=== PATIENT | male | born 1955 | race Caucasian/White ===

== ENCOUNTER 2017-06-25 10:00 | Outpatient (CLI) | payer MEDICARE ==
[~2017-06-25] VITALS: Ht 182.9 cm; Wt 85.0 kg
--- NOTE | ~2017-06-25 | HEMODYNAMI ---
PATIENT:OCHOA YOU MEDICAL RECORD: [id number] : 59 LOCATION:[facility] ADMISSION DATE: 06/25/17 Generatedon:06/25/201715:01 Patient name: OCHOA YOU Patient #: [id number] SSN: : 1955 Date of study: 06/25/2017 Page: Of Hemodynamic Procedure Report Patient Data Patient Demographics Procedure consent was obtained First Name: OCHOA Gender: Male Last Name: KENYATTA : 1955 Middle Initial: REGINA Age: 62 year(s) Patient #: [id number] Race: Unknown Additional ID: [id number] Contact details [address]: [address] [place] [address] State: [place] City: [place] Zip code: [address] Admission Admission Data Admission Date: 06/25/2017 Admission Time: 10:00 Procedure Procedure Types Cath Procedure Diagnostic Procedure LHC LHC w/Coronaries PCI Procedure Coronary Stent Initial Miscellaneous Procedures Moderate Sedation up to 30 minutes Peripheral Cath Diagnostic Procedure Cath Peripheral Rghky-Bsbgqzs-Ery-Off Abd/Extremity Extremities AFRO Lower Ext Arterio Procedure Description Procedure Date Procedure Date: 06/25/2017 Procedure Start Time: 14:34 Procedure Staff Name Function Aleksey Mccarty MD Performing Physician Mahendra Colon RT Scrub Billy Ramey RT Monitor Cyndie Scruggs RN Nurse Procedure Data Cath Procedure Fluoroscopy Diagnostic fluoroscopy Total fluoroscopy Time: 4.2 time: 4.2 min min Diagnostic fluoroscopy Total fluoroscopy dose: 891 dose: 891 mGy mGy Contrast Material Contrast Material Type Amount (ml) Isovue 300 151 Entry Location Entry Primary Successful Side Size Upsize Upsize Entry Closure Succes sful Closure Location (Fr) 1 (Fr) 2 (Fr) Remarks Device Remarks Femoral Right 5 Fr 6 Fr Exoseal artery Short Diagnostic catheters Device Type Used For End Catheter Placement Cordis 5Fr JL 4.0 Left Coronary Catheter (MP) Angiography Cordis 5Fr 3DRC Catheter Right Coronary (MP) Angiography Cordis 5Fr Pigtail LV Angiography Catheter (MP) Procedure Medications Medication Administration Route Dosage Oxygen NC 2 l/min Heparin Flush Bag added to field 2 bags (1000units/500ml NS) Lidocaine 2% added to field 20 Versed I.V. 1 mg Fentanyl I.V. 50 mcg Versed I.V. 1 mg Fentanyl I.V. 50 mcg Versed I.V. 0.5 mg Fentanyl I.V. 25 mcg Heparin Bolus I.V. 5000 units Integrilin (Bolus I.V. 7.9 ml 2mg/ml) Plavix P.O. 600 mg Hemodynamics Rest Heart Rate: 54 (bpm) Pressure Samples Time Site Value (mmHg) Purpose Heart Use Rate(bpm) 14:41 LV 136/-30,13 Snapshot 58 14:41 AO 123/55(80) Pullback 55 14:41 LV 131/11,13 Pullback 55 Gradients Valve Time Site 1 Site 2 Mean SEP/DFP Peak To Heart Use (mmHg) (sec/min) Peak Rate (mmHg) (bpm) Aortic 14:41 LV AO 5 14 8 55 131/11,13 123/55(80) Calculations Valve P-P Mean Valve Index Valve Source Name Gradient Area Flow (cm2) Aortic 8 5 8 5 Snapshots Pre Cath Intra NCS Post Cath Vital Signs Time Heart Resp SPO2 NIBP (mmHg) Rhythm Pain Sedation Rate (ipm) (%) Status Level (bpm) 14:17:39 50 18 100 156/67(110) SB 0 (11) 10(A) , No pain 14:22:38 51 16 100 Measuring SB 0 (11) 10(A) , No pain 14:23:09 52 16 100 135/61(105) SB 0 (11) 10(A) , No pain 14:27:25 61 16 97 125/62(91) SB 0 (11) 9(A) , No pain 14:31:38 54 22 99 124/66(103) SB 0 (11) 9(A) , No pain 14:35:51 51 16 98 125/72(96) SB 0 (11) 9(A) , No pain 14:40:02 53 20 99 130/70(104) SB 0 (11) 9(A) , No pain 14:44:20 56 17 96 128/60(92) SB 0 (11) 9(A) , No pain 14:49:19 60 15 96 Measuring SB 0 (11) 9(A) , No pain 14:49:30 53 16 97 118/63(106) SB 0 (11) 9(A) , No pain 14:54:29 48 16 99 Measuring SB 0 (11) 9(A) , No pain 14:54:41 51 16 98 124/68(89) SB 0 (11) 10(A) , No pain 14:58:51 51 19 99 134/66(107) SB 0 (11) 10(A) , No pain Medications Time Medication Route Dose Verified Delivered Reason Notes Effectiveness by by 14:17:13 Oxygen NC 2 Aleksey Cyndie Per physician l/min [facility]. Tarik Scruggs RN, MD 14:17:21 Heparin Flush added 2 Aleksey Aleksey used for Bag to bags [facility] procedure (1000units/500ml field MD SEAY NS) 14:17:29 Lidocaine 2% added 20ml Aleksey Aleksey used for to vial [facility] procedure field MD SEAY 14:20:20 Versed I.V. 1 mg Aleksey Cyndie for sedation [facility]. Tarik Scruggs RN, MD 14:20:26 Fentanyl I.V. 50 Aleksey Cyndie for sedation mcg [facility] Tarik Scruggs RN, MD 14:23:43 Versed I.V. 1 mg Aleksey Cyndie for sedation [facility] Tarik Scruggs RN, MD 14:23:53 Fentanyl I.V. 50 Aleksey Cyndie for sedation mcg [facility] Tarik Scruggs RN, MD 14:27:00 Versed I.V. 0.5 Aleksey Cyndie for sedation mg [facility] Tarik Scruggs RN, MD 14:27:10 Fentanyl I.V. 25 Aleksey Cyndie for sedation mcg [facility] Tarik Scruggs RN, MD 14:46:35 Heparin Bolus I.V. 5000 Aleksey Cyndie for dose units [facility] Tarik Scruggs RN anticoagulation verified wtleesa carmona 14:50:18 Integrilin I.V. 7.9 Aleksey Cyndie for wasted (Bolus 2mg/ml) ml [facility] Tarik Scruggs RN antiplatelet 2.1ml therapy 14:58:16 Plavix P.O. 600 Aleksey Cyndie for mg [facility]. Tarik Scruggs RN antiplatelet therapy Procedure Log Time Note 14:08:17 [place] RT (R) (CV) sent for patient. Start room use. 14:11:44 Time tracking: Regular hours 14:11:52 Plan of Care:Hemodynamics will remain stable., Cardiac rhythm will remain stable., Comfort level will be maintained., Respiratory function will remain adequate., Patient/ family verbilizes understanding of procedure., Procedure tolerated without complication., Recovers from procedure without complications.. 14:11:57 Patient received from Pre/Post Procedure Room to [facility] 2 Alert and oriented. Tansferred to table in Supine position. 14:11:59 Warm blankets applied, and ruma hugger turned on for patient comfort. 14:11:59 Correct patient and procedure confirmed by team. 14:12:01 Signed procedure consent form obtained from patient. 14:12:02 ECG and BP/O2 sat monitors applied to patient. 14:12:03 Full Disclosure recording started 14:12:04 - 14:12:06 H&P Date Dictated: 06/25/2017 H&P Addendum completed by physician on day of procedure. (MUST COMPLETE FOR ALL OUTPATIENTS). 14:12:07 Pre-procedure instructions explained to patient. 14:12:07 Pre-op teaching completed and patient verbalized understanding. 14:12:09 Family in waiting room. 14:12:10 Patient NPO since Midnight. 14:12:17 Is the patient allergic to Iodine/contrast media? No. 14:12:19 Is patient on blood thinner?No 14:12:21 Patient diabetic? No. 14:12:23 - 14:12:23 ----Pre-sedation anethsthesia assessment.---- 14:12:26 Previous problem with sedation/anesthesia? No ? 14:12:27 Snore? Yes 14:12:29 Sleep apnea? No 14:12:30 Deviated septum? No 14:12:31 Opens mouth fully? Yes 14:12:32 Sticks out tongue? Yes 14:12:34 Airway obstruction? No ? 14:12:38 Dentures? No ? 14:12:39 - 14:12:42 Pre procedure: right dorsailis pedis pulse Doppler 14:12:50 Patient pain scale 0/10 no pain. 14:12:54 Sharps counted by scrub and verified by R.N. 14:12:54 Alarms reviewed by R. N. 14:13:49 Sleep apnea? Yes 14:13:55 ACC The patient was administered the following blood thiners within the last 24 hours: ACCAspirin 14:16:17 Vital chart was started 14:17:13 Oxygen 2 l/min NC was administered by Cyndie Scruggs RN; Per physician; 14:17:21 Heparin Flush Bag (1000units/500ml NS) 2 bags added to field was administered by Aleksey Mccarty MD; used for procedure; 14:17:29 Lidocaine 2% 20ml vial added to field was administered by Aleksey Mccarty MD; used for procedure; 14:18:32 IV patent on arrival in left forearm with 0.9% NaCl at [facility]. 14:18:38 Bilateral groins area was prepped with chlora-prep and draped in steril e fashion 14:18:43 Physician arrived 14:18:43 --------ALL STOP TIME OUT------ 14:18:44 Final Timeout: patient, procedure, and site verified with staff and physician. All members of the team are in agreement. 14:18:46 Bilateral groins site verified by team. 14:18:50 Physical assessment completed. ASA score P 2 - A patient with mild systemic disease as per Aleksey Mccarty MD. 14:18:53 Sedation plan: IV Moderate Sedation Versed, Fentanyl 14:20:20 Versed 1 mg I.V. was administered by Cyndie Scruggs RN; for sedation; 14:20:26 Fentanyl 50 mcg I.V. was administered by Cyndie Scruggs RN; for sedation; 14:21:00 Use device set Femoral Dx 14:21:01 Acist Syringe opened to sterile field. 14:21:02 Bag Decanter opened to sterile field. 14:21: Medline Cath Pack opened to sterile field. 14:21:03 Terumo 5Fr [place] Sheath opened to sterile field. 14:21:03 [facility] 260cm J .035 wire opened to sterile field. 14:21:07 Acist Hand Control opened to sterile field. 14:21:08 Acist Manifold opened to sterile field. 14:21:08 Diagnostic Infinity 5Fr Multipack catheter opened to sterile field. 14:21:09 Tegaderm 4 x 4 opened to sterile field. 14:22:25 Baseline sample Acquired. 14:22:29 Rhythm: sinus bradycardia 14:23:43 Versed 1 mg I.V. was administered by Cyndie Scruggs RN; for sedation; 14::53 Fentanyl 50 mcg I.V. was administered by Cyndie Scruggs RN; for sedation; 14:27:00 Versed 0.5 mg I.V. was administered by Cyndie Scruggs RN; for sedation; 14:27:10 Fentanyl 25 mcg I.V. was administered by Cyndie Scruggs RN; for sedation; 14:27:22 Zero performed for pressure channel P1 14:33:50 Procedure started. 14:34:01 Local anesthetic to right femoral artery with Lidocaine 2% by Aleksey Mccarty MD.INITIAL ACCESS ONLY 14:34:52 A 5 Fr sheath was inserted into the Right Femoral artery 14:36:46 A Cordis 5Fr JL 4.0 Catheter (MP) was advanced over the wire and used for Left Coronary Angiography. 14:37:00 LCA angiography performed. 14:39:00 A Cordis 5Fr 3DRC Catheter (MP) was advanced over the wire and used for Right Coronary Angiography. 14:39:04 RCA angiography performed. 14:40:11 A Cordis 5Fr Pigtail Catheter (MP) was advanced over the wire and used for LV Angiography. 14:40:14 LV angiography performed. 14:41:48 Abdominal angiogram w/ runoff was performed. 14:43:43 Terumo 6Fr [place] Sheath opened to sterile field. 14:43:54 Sheath upsized to a 6 Fr Short. 14:44:06 36Kr BasixCompak Inflation Kit opened to sterile field. 14:44:16 Medtronic Launcher 6Fr EBU 3.0 guide catheter opened to sterile field. 14:44:29 Morgan Whisper J 300cm 0.014 guide wire opened to sterile field. 14:44:57 6 Fr EBU 3.0 guide catheter was inserted over the wire 14:45:02 Whisper wire advanced. 14:46:04 Procedure type changed to Cath procedure, Diagnostic procedure, LHC, LH C w/Coronaries, PCI procedure, Coronary Stent Initial, Miscellaneous Procedures, Moderate Sedation up to 30 minutes, Peripheral Cath Diagnostic Procedure, Cath Peripheral, Iffbt-Tvmtdnb-Yds-Off, Abd/Extremity, Extremities, AFRO Lower Ext Arterio 14:46:35 Heparin Bolus 5000 units I.V. was administered by Cyndie Scruggs RN; fo r anticoagulation; dose verified wt dr carmona 14:50:18 Integrilin (Bolus 2mg/ml) 7.9 ml I.V. was administered by Cyndie cespedes RN; for antiplatelet therapy; wasted 2.1ml 14:52:12 Inflation Number: 1 A Medtronic Integrity 3.0 X 22 stent was prepped an d advanced across the Mid CX. The stent was deployed at 14 ANTHONY for 0:45 (min:sec). 14:53:08 Inflation number: 2 The stent balloon was then re-inflated across the Mid CX to 6 ANTHONY for 0:19 (min:sec). 14:53:52 Cordis 6Fr Exoseal opened to sterile field. 14:54:03 Sheath removed intact; hemostasis achieved with Exoseal to the Right Femoral artery. 14:54:06 Procedure ended.(Physican Out) 14:54:20 Fluoroscopy time 04.20 minutes. 14:54:24 Fluoroscopy dose: 891 mGy 14:54:24 Flurop Dose total: 891 14:54:29 Contrast amount:Isovue 300 151ml. 14:54:30 Sharps counted by scrub and verified by R.N. 14:54:31 Insertion/operative site no bleeding no hematoma. 14:54:35 Post-op/insertion site Right Femoral artery dressed using a 4 x 4 and Tegaderm. 14:54:38 Post right femoral artery:stable 14:54:39 Post Procedure Pulses reassessed and unchanged 14:54:44 Post-procedure physical assessment completed. ASA score P 2 - A patient with mild systemic disease as per Aleksey Mccarty MD. 14:54:47 Post procedure rhythm: unchanged. 14:54:47 Post procedure instruction explained to patient.Patient verbalizes understanding. 14:54:48 Procedure and supply charges have been captured, reviewed, submitted an d are correct. 14:58:16 Plavix 600 mg P.O. was administered by Cyndie Scruggs RN; for antiplatelet therapy; 15:00:50 Report given to Pre/Post Procedure Room. 15:00:54 Patient transfered to Pre/Post Procedure Room with Stretcher. 15:01:39 Vital chart was stopped Intervention Summary Intervention Notes Time ActionType Lesion and Equipment Action# Pressure Duration Attributes Used 14:52:12 Place stent Mid CX Medtronic 1 14 00:46 Integrity 3.0 X 22 stent 14:53:08 Reinflate Mid CX Medtronic 2 6 00:19 stent Integrity balloon 3.0 X 22 stent Device Usage Item Name Manufacture Quantity Catalog Hospital Part Current Minimal L ot# / Number Charge Number Stock Stock Serial# Code Acist Acist 1 [id number] 496118 206068 048716 20 Syringe Medical Systems Inc Bag Microtek 1 2002S 388512 81284 352557 5 MatrixVision Inc. Medline Cardinal 1 [id number] 782837 01854 891126 5 Cath Pack Health Terumo 5Fr Terumo 1 [id number] 694431 299133 217448 [address] [facility] 1 569805 398371 064063 154914 30 260cm J .035 wire Acist Hand Acist 1 67819 430234 421392 059484 5 ProtectWise Medical Systems Inc Acist Acist 1 13115 904378 782799 717578 5 Compression Kinetics Medical Systems Inc Diagnostic Cardinal 1 [id number] 416355 46078 796755 30 Widgetboxity Health 5Fr Multipack catheter Tegaderm 4 3M 1 1626W 502499 387394 957699 5 x 4 Cordis 5Fr Cardinal 1 546343 5 JL 4.0 Health Catheter (MP) Cordis 5Fr Cardinal 1 504817 5 3DRC Health Catheter (MP) Cordis 5Fr Cardinal 1 274891 5 Pigtail Health Catheter (MP) Terumo 6Fr Terumo 1 [id number] 881018 757532 202964 40 [place] Merit Merit 1 [id number] 118248 189873 292960 15 BridgeCo Medical Inflation Kit Medtronic Medtronic 1 [id number] 128295 70481 769020 0 Launcher 6Fr EBU 3.0 guide catheter Morgan Morgan 1 [id number] 840501 111349 072933 5 Whisper J Vascular 300cm 0.014 guide wire Medtronic Medtronic 1 [id number] 238500 921536 1 0 [id number] Integrity 3.0 X 22 stent Cordis 6Fr Cardinal 1 EX600 737027 699216 944235 10 [facility] Practice Ignition Signature Audit Reading Stage Time Signature Unsigned Intra-Procedure 06/25/2017 3:01:23 PM Tanvir RT (R) (CV) Signatures Monitor : Signature : Tanvir RT Date : Time : [place] [id number] [place] [address]
--- NOTE | ~2017-06-25 | OP ---
PATIENT NAME: OCHOA YOU MEDICAL RECORD: [id number] :59 LOCATION:D.CAT ADMISSION DATE: SURGEON: FABIANO ALLISON MD DATE OF OPERATION: 06/25/2017 PROCEDURE: Left heart catheterization, selective coronary angiography, right femoral artery approach. CATHETERS: A 5-Norwegian sheath, 5/4 left and right Penelope, 5/4 pig. We proceeded to PTCA stenting as well as AFRO after the left heart catheterization. FINDINGS: Left ventriculography in 30-degree LEAL view shows marked inferior basilar hypokinesis. Overall LV function reduced at 35% to 40%. CORONARY ANATOMY: LEFT MAIN: Left main is free of disease. LAD: LAD has a discrete stenosis after takeoff of the diagnosis at 80%. CIRCUMFLEX: Has more diffuse 80% stenosis in the first OM. RIGHT CORONARY ARTERY: Totally occluded, fills via [id number] collaterals. The catheter was then pulled to the level of the renal arteries and abdominal aortogram was performed that shows: 1. No evidence of significant renal artery stenosis, no evidence of aneurysm resection. 2. Right lower extremity runoff, this shows the right common iliac no significant disease, right internal iliac no significant disease, right common femoral no significant disease, right superficial femoral no significant disease with 2-vessel runoff. Left. Left common iliac no significant disease, left internal iliac no significant disease, left external iliac no significant disease, left common femoral no significant disease, left superficial femoral artery shows no significant disease, two-vessel runoff. IMPRESSION: Normal lower extremity runoff. PLAN: Intervention of the circumflex. DESCRIPTION OF PROCEDURE: A 5-Norwegian sheath was changed for a 6-Norwegian sheath. The XB LAD guide catheter provided good guide catheter support followed by 300 cm Whisper wire was placed across the site occluded circumflex down this portion of this vessel. Stent deployed was a 22 mm x 3.0 Integrity stent up to 14 atmospheres for 45 seconds. Final injection shows excellent resolution of a diffuse 80% stenosis, no significant residual. ISHMAEL flow was 3 throughout the procedure. Integrilin was used in the case. Sheath closed with ExoSeal device. Plavix was loaded in the lab. TRANSINT:[id number] Voice Confirmation ID: [id number] DOCUMENT ID: [id number] OPERATIVE REPORT [id number] OCHOA YOU FABIANO ALLISON MD CC: [id number] DICTATION DATE: 06/25/17 1508 NURSE RESEARCH: 06/25/172020 DEP CLI 06/25/17 [place] [id number] [place] [id number]
[2017-06-25] MEDS ORDERED: BAYER CHEWABLE81 MG PO ×2 (10:52→15:29)
[2017-06-25 10:59] VITALS: BP 181/66; Ht 182.9 cm; Wt 85.0 kg
[2017-06-25] MEDS ORDERED: LISINOPRIL10 MG PO (11:03)
[2017-06-25 11:22] LABS: BASOPHILS 0.7 % (0-2); EOSINOPHILS 1.5 % (0-7); HEMATOCRIT 47.1 % (42.0-54.0); HEMOGLOBIN 14.6 g/dL (13.5-17.5); IMMATURE GRANULOCYTES 0.3 % (0-5); LYMPHOCYTES 30.3 % (15-50); MCH 27.9 pg (26.0-34.0); MCV 90.1 fL (80.0-100.0); MEAN PLATELET VOLUME 10.2 fL (7.4-10.4); MONOCYTES 7.8 % (2-11); NEUTROPHILS 59.4 % (40-80); PLATELET COUNT 230 10x3/uL (130-400); RBC 5.23 10x6/uL (4.20-6.10); RDW 13.3 % (11.5-14.5); WBC 7.2 10x3/uL (4.8-10.8)
[2017-06-25 11:48] LABS: CALC OSMOLALITY 275 mosm/kg (275-300); CALCIUM 8.8 mg/dL (8.5-10.1); CARBON DIOXIDE 24.4 mmol/L (21.0-32.0); CHLORIDE - SERUM 102 mmol/L (98-107); GLUCOSE 125 mg/dL (74-106); POTASSIUM - SERUM 5.1 mmol/L (3.5-5.1); SODIUM 137 mmol/L (136-145); UREA NITROGEN 16 mg/dL (7-18); eGFR NON AFRICAN AMERICAN 81 mL/min (90-120)
--- NOTE | 2017-06-25 11:51 | NUR ---
1515 RECIEVED TO ROOM VIA STRETCHER FROM HOME COORDINATOR WITH REPORTS OF ONE STENT TO THE CIRC. 6 FR EXOSEAL R/GROIN CDI NO BLEEDING NO HEMATOMA NOTED. FAMILY AT SIDE 1545 CHEST PAIN IS DENIED VSS WITH 6 FR EXOSEAL R/GROIN CDI NO BLEEDING NO HEMATOMA NOTED INSTRUCTED PATIENT TO KEEP HEAD FLAT ON PILLOW WITH RLE STRIAGHT 1615 CHEST PAIN DENIED WITH VSS 6 FR EXOSEAL R/GROIN CDI NO BLEEDING NO HEMATOMA NOTED.
[2017-06-25] MEDS ORDERED: PLAVIX75 MG PO (15:29)
[2017-06-25] MEDS ORDERED: ALDACTONE25 MG PO (15:30)
--- NOTE | 2017-06-25 16:00 | NUR ---
2 CC AIR REMOVED FROM TR BAND WITH NO BLEEDING NO HEMATOMA NOTED. PIV REMOVED WITH DRESSING APPLIED. CHEST PAIN IS DENIED. PATIENT UP TO GET DRESSED FOR DISCHARGE HOME 1630 TR BAND REMOVED WITH DRESSING APPLIED. CHEST PAIN IS DENIED. VERBAL AND WRITTEN DISCHARGE GONE OVER WITH PATIENT AND FAMILY LEFT VIA WC TO PARKING FOR TRANSPORT HOME
--- NOTE | 2017-06-25 16:30 | NUR ---
1630 RESTING QUIELTY WITH NO DISTRESS NOTED 6 FR EXOSEAL R/GROIN CDI NO BLEEDING NO HEMATOMA NOTED 1700 NO CHANGE IN ASSESSMENT VSS WITH SANDWICH AND SODA TO BEDSIDE. IS PRESENT TO ASSIST R/GROIN CDI
--- NOTE | 2017-06-25 17:46 | NUR ---
PATIENT SLEEPING QUIELTY WITH NO DISTRESS NOTED 6 FR EXOSEAL R/GROIN CDI NO BLEEDING NO HEMATOMA NOTED. VSS
--- NOTE | 2017-06-25 18:18 | NUR ---
REPOSITIONED TO SITTING WITH HOB UP 45 DEGREES CHEST PAIN IS DENIED. 6 FR EXOSEAL R/GROIN CDI NO BLEEDING NO HEMATOMA NOTED.
--- NOTE | 2017-06-25 18:33 | NUR ---
PIV REMOVED WITH DRESSING APPLIED CHEST PAIN IS DENIED. 6 FR EXOSEAL R/GROIN CDI NO BLEEDING NO HEMATOMA NOTED. PATIENT UP TO GET DRESSED FOR DISCHARGE HOME
== END 2017-06-25 18:57 | disposition home or self-care (01) ==
LOC: D.CATH 10:00
PROVIDERS: Internal Medicine Interventional Cardiology
DX: I25.119 Atherosclerotic heart disease of native coronary artery with unspecified angina pectoris (principal); Z01.812 Encounter for preprocedural laboratory examination

== ENCOUNTER → 2017-07-02 10:49 | Outpatient (CLI) | payer MEDICARE ==
[~2017-07-02] VITALS: Ht 182.9 cm; Wt 84.1 kg
--- NOTE | ~2017-07-02 | OP ---
PATIENT NAME: OCHOA YOU MEDICAL RECORD: [id number] :59 LOCATION:D.CAT ADMISSION DATE: SURGEON: FABIANO ALLISON MD DATE OF OPERATION: 07/02/2017 PTCA Stenting of the LAD For previous report please see catheterization done previously. 6-Maori sheath placed in the left femoral artery. An EBU 3.5 guiding catheter provided good guide catheter support followed 300 cm Whisper wire which was placed across the 80% stenosed LAD down to the distal portion of this vessel. Stent deployed was a 3.0 x 18 mm Integrity nondrug-eluting stent inflated up to 14 atmospheres for 45 seconds. Final injection shows excellent resolution of 80% stenosis, no significant residual. ISHMAEL flow was 3 throughout the procedure. The patient was previously on Plavix, heparin was given in the lab. Sheath was closed with ExoSeal device. TRANSINT:[id number] Voice Confirmation ID: [id number] DOCUMENT ID: [id number] FABIANO ALLISON MD CC: [id number] DICTATION DATE: 07/02/17 1531 GIS DEVELOPER: 07/02/172053 DEP CLI 07/02/17 [facility] [address] [place] [address]
--- NOTE | ~2017-07-02 | HEMODYNAMI ---
PATIENT:OCHOA YOU MEDICAL RECORD: [id number] : 59 LOCATION:[facility] ADMISSION DATE: 07/02/17 Generatedon:07/02/201715:33 Patient name: OCHOA YOU Patient #: [id number] SSN: : 1955 Date of study: 07/02/2017 Page: Of Hemodynamic Procedure Report Patient Data Patient Demographics Procedure consent was obtained First Name: OCHOA Gender: Male Last Name: KENYATTA : 1955 [facility] Initial: REGINA Age: 62 year(s) Patient #: [id number] Race: Unknown Additional ID: [id number] Contact details [address]: [address] [place] [address] State: [place] City: [place] Zip code: [address] Past Medical History Allergies: No known allergies Admission Admission Data Admission Date: 07/02/2017 Admission Time: 10:49 Lab Results Lab Result Date: 07/02/2017 Lab Result Time: 0:00 Biochemistry Name Units Result Min Max BUN mg/dl 18 --(---*)-- 7 18 Creatinine mg/dl 1.3 --(---*)-- 0.6 1.3 CBC Name Units Result Min Max Hematocrit % 45.6 --(-*--)-- 42 54 Hemoglobin g/dl 15.8 --(--*-)-- 13.5 17.5 Procedure Procedure Types Cath Procedure PCI Procedure Coronary Stent Initial Miscellaneous Procedures Moderate Sedation up to 15 minutes Procedure Description Procedure Date Procedure Date: 07/02/2017 Procedure Start Time: 15:19 Procedure End Time: 15:30 Procedure Staff Name Function Aleksey Mccarty MD Performing Physician Karla Stephenson RN Nurse Mahendra Colon RT Scrub Delmer Dewey RT Monitor Procedure Data Cath Procedure Fluoroscopy Diagnostic fluoroscopy Total fluoroscopy Time: 1.3 time: 1.3 min min Diagnostic fluoroscopy Total fluoroscopy dose: 93 dose: 93 mGy mGy Contrast Material Contrast Material Type Amount (ml) Isovue 300 47 Entry Location Entry Primary Successful Side Size Upsize Upsize Entry Closure Succes sful Closure Location (Fr) 1 (Fr) 2 (Fr) Remarks Device Remarks Femoral Left 6 Fr Exoseal artery Short Estimated blood loss: 10 ml Procedure Complications No complications Procedure Medications Medication Administration Route Dosage Versed I.V. 1 mg Fentanyl I.V. 50 mcg Versed I.V. 1 mg Fentanyl I.V. 50 mcg Fentanyl I.V. 50 mcg Versed I.V. 1 mg Heparin Bolus I.V. 5000 units Hemodynamics Rest HGB: 15.8 (g/dl) Heart Rate: 50 (bpm) Snapshots Pre Cath Intra NCS Post Cath Vital Signs Time Heart Resp SPO2 etCO2 [id number] NIBP (mmHg) Rhythm Pain Sedation Rate (ipm) (%) (mmHg) (mmHg) Status Level (bpm) 15:10:33 47 16 100 0 0 Measuring NSR 0 (11) 10(A) , No pain 15:10:50 48 19 100 0 0 153/72(123) NSR 0 (11) 10(A) , No pain 15:15:10 49 14 100 0 0 122/68(83) NSR 0 (11) 10(A) , No pain 15:19:17 52 18 99 0 0 72/47(64) NSR 0 (11) 9(A) , No pain 15:24:04 49 17 98 0 0 154/72(109) NSR 0 (11) 9(A) , No pain 15:28:28 51 18 99 0 0 145/65(105) NSR 0 (11) 10(A) , No pain Medications Time Medication Route Dose Verified Delivered Reason Notes Effecti veness by by 15:15:22 Versed I.V. 1 mg Karla Karla for Seema Seema sedation RN RN 15:15:32 Fentanyl I.V. 50 Karla Karla for mcg Seema Seema sedation RN RN 15:19:50 Versed I.V. 1 mg Karla Karla for Seema Seema sedation RN RN 15:19:57 Heparin I.V. 5000 Aleksey Karla Per verified Bolus units [facility]selor physician with dr. MD STEPHEN tavera john 15:20:15 Fentanyl I.V. 50 Karla Karla for mcg Seema Seema sedation RN RN 15:24:22 Fentanyl I.V. 50 Karla Acosta for mcg Seema Stephenson sedation RN RN 15:24:31 Versed I.V. 1 mg Karla Acosta for Seema Seema sedation RN router operator pin Log Time Note 14:45:31 Karla Stephenson RN sent for patient. Start room use. 15:00:31 Time tracking: Regular hours 15:00:37 Plan of Care:Hemodynamics will remain stable., Cardiac rhythm will remain stable., Comfort level will be maintained., Respiratory function will remain adequate., Patient/ family verbilizes understanding of procedure., Procedure tolerated without complication., Recovers from procedure without complications.. 15:00:42 Patient received from Pre/Post Procedure Room to CCL 1 Alert and oriented. Tansferred to table in Supine position. 15:00:43 Warm blankets applied, and ruma hugger turned on for patient comfort. 15:00:44 Correct patient and procedure confirmed by team. 15:00:45 Signed procedure consent form obtained from patient. 15:00:46 ECG and BP/O2 sat monitors applied to patient. 15:08:43 Vital chart was started 15:08:55 Baseline sample Acquired. 15:09:00 Rhythm: sinus rhythm 15:09:39 H&P Date Dictated: 06/19/2017 Within 30 days and on chart., H&P Addendum completed by physician on day of procedure. (MUST COMPLETE FOR ALL OUTPATIENTS). 15:11:14 Pre-procedure instructions explained to patient. 15:11:14 Pre-op teaching completed and patient verbalized understanding. 15:11:16 Family in patients room. 15:11:17 Patient NPO since Midnight. 15:11:24 Patient allergic to No known allergies 15:11:27 Is the patient allergic to Iodine/contrast media? No. 15:11:48 Is patient on blood thinner?No 15:11:50 Patient diabetic? No. 15:11:53 Previous problem with sedation/anesthesia? No ? 15:11:54 Snore? Yes 15:11:55 Sleep apnea? Yes 15:11:56 Deviated septum? No 15:11:57 Opens mouth fully? Yes 15:11:58 Sticks out tongue? Yes 15:12:00 Airway obstruction? No ? 15:12:02 Dentures? No loose teeth 15:12:27 Pre procedure: left dorsailis pedis pulse 1+ Palpable, but thready & weak; easily obliterated 15:12:29 Patient pain scale 0/10 ?. 15:12:44 IV patent on arrival in left forearm with 0.9% NaCl at [facility]. 15:13:44 Lab Result : BUN 18 mg/dl ::44 Lab Result : Creatinine 1.3 mg/dl 15::44 Lab Result : Hemoglobin 15.8 g/dl ::44 Lab Result : Hematocrit 45.6 % 15:13:46 Lab results completed and on chart. 15:13:48 Left groin area was prepped with chlora-prep and draped in sterile fashion 15:13:50 Alarms reviewed by R. N. 15:13:50 Sharps counted by scrub and verified by R.N. 15:13:53 Use device set Femoral PCI 15:13:54 Tegaderm 4 x 4 opened to sterile field. 15:13:55 Acist Manifold opened to sterile field. 15:13:55 Merit BasixCompak Inflation Kit opened to sterile field. 15:13:56 Acist Syringe opened to sterile field. 15:13:57 Acist Hand Control opened to sterile field. 15:13:57 Bag Decanter opened to sterile field. 15:13:58 Medline Cath Pack opened to sterile field. 15:13:58 Terumo 6Fr Macon Sheath opened to sterile field. 15:13:59 [facility] 260cm J .035 wire opened to sterile field. 15:14:07 Morgan Whisper J 300cm 0.014 guide wire opened to sterile field. 15:14:14 Physician arrived 15:14:14 --------ALL STOP TIME OUT------ 15:14:15 Final Timeout: patient, procedure, and site verified with staff and physician. All members of the team are in agreement. 15:14:16 Left groin site verified by team. 15:14:19 Physical assessment completed. ASA score P 2 - A patient with mild systemic disease as per Aleksey Mccarty MD. 15:14:22 Sedation plan: IV Moderate Sedation Versed, Fentanyl 15:15:22 Versed 1 mg I.V. was administered by Karla Stephenson RN; for sedation; 15:15:32 Fentanyl 50 mcg I.V. was administered by Karla Stephenson RN; for sedation; 15:19:22 Procedure started. 15:: Full Disclosure recording started 15::25 Local anesthetic to left femerol artery with Lidocaine 2% by Aleksey Mccarty MD.INITIAL ACCESS ONLY 15:19:34 A 6 Fr Short sheath was inserted into the Left Femoral artery 15:19:45 Medtronic Launcher 6Fr EBU 3.0 guide catheter opened to sterile field. 15:19:50 Versed 1 mg I.V. was administered by Karla Stephenson RN; for sedation; 15:19:50 Zero performed for pressure channel P1 15:19:52 Zero performed for pressure channel P1 15::57 Heparin Bolus 5000 units I.V. was administered by Karla Stephenson RN; Per physician; verified with dr. carmona 15:20:08 6 Fr EBU 3 guide catheter was inserted over the wire 15:20:15 Fentanyl 50 mcg I.V. was administered by Karla Stephenson RN; for sedation; 15::45 WHISPER wire advanced. 15:23:40 Wire advanced across lesion. 15:24:22 Fentanyl 50 mcg I.V. was administered by Karla Stephenson RN; for sedation; 15::27 Inflation Number: 1 A Medtronic Integrity 3.0 X 18 stent was prepped and advanced across the Prox LAD. The stent was deployed at 14 ANTHONY for 0:45 (min:sec). 15:24:31 Versed 1 mg I.V. was administered by Karla Stephenson RN; for sedation; 15:25:12 Stent catheter was removed intact over wire. 15:25:13 Wire removed. 15:25:13 Guide catheter removed. 15:25:21 Cordis 6Fr Exoseal opened to sterile field. 15:25:29 Sheath removed intact; hemostasis achieved with Exoseal to the Left Femoral artery. ::31 Procedure ended.(Physican Out) ::31 Fluoroscopy time 01.30 minutes. 15::35 Fluoroscopy dose: 93 mGy 15::35 Flurop Dose total: 93 15:27:06 Contrast amount:Isovue 300 47ml. 15:27:08 Sharps counted by scrub and verified by R.N. 15:27:10 Insertion/operative site no bleeding no hematoma. 15:27:13 Post-op/insertion site Left Femoral artery dressed using a 4 x 4 and Tegaderm. 15:27:18 Post left femerol artery:stable, soft, clean and dry 15:27:20 Post Procedure Pulses reassessed and unchanged 15:27:22 Post-procedure physical assessment completed. ASA score P 2 - A patient with mild systemic disease as per Aleksey Mccarty MD. 15:27:25 Post procedure rhythm: unchanged. 15::35 Estimated blood loss: 10 ml 15::37 Post procedure instruction explained to patient.Patient verbalizes understanding. 15::37 Patient needs reinforcement of post procedure teaching. 15::52 Procedure and supply charges have been captured, reviewed, submitted and are correct. 15::52 Vital chart was stopped 15::55 Procedure Complication : No complications 15::57 See physician's report for complete and final results. 15::59 Report given to Pre/Post Procedure Room. 15:30:01 Patient transfered to Pre/Post Procedure Room with Stretcher. 15:30:03 Procedure ended. 15:30:03 Full Disclosure recording stopped 15:30:08 End room use (Document Last) Intervention Summary Intervention Notes Time ActionType Lesion and Equipment Action# Pressure Duration Attributes Used 15:24:27 Place stent Prox LAD Medtronic 1 14 00:45 Integrity 3.0 X 18 stent Device Usage Item Name Manufacture Quantity Catalog Hospital Part Current Minimal L ot# / Number Charge Number Stock Stock Serial# Code Tegaderm 4 3M 1 [id number] [id number] 990075 5 x 4 Acist Acist 1 94353 173369 310511 535228 5 Manifold [employer] Inc Merit Merit 1 [id number] 235934 668999 146133 15 BasixCompak Medical Inflation Kit Acist Acist 1 92105 619940 060420 475258 20 Syringe Medical Systems Inc Acist Hand Acist 1 40659 128210 169264 797518 5 Control [employer] Inc Bag Microtek 1 2002S 154109 95950 371100 5 [employer] Medline Cardinal 1 [id number] 354329 85677 336855 5 Cath Pack ezCater Terumo 6Fr Terumo 1 [id number] 755549 328281 936549 [address] [facility] 1 [id number] 796857 987738 623550 30 260cm J .035 wire Morgan Morgan 1 [id number] 515287 311012 717920 5 Whisper J Vascular 300cm 0.014 guide wire Medtronic Medtronic 1 [id number] 320136 21694 635420 0 Launcher 6Fr EBU 3.0 guide catheter Medtronic Medtronic 1 [id number] 442517 046082 1 0 [id number] Integrity 3.0 X 18 stent Cordis 6Fr Cardinal 1 EX600 228327 926643 039855 10 [facility] ezCater Signature [facility] [place] [facility] Time Signature Unsigned Intra-Procedure 07/02/2017 Delmer Dewey 3:33:01 PM RT(R) Signatures Monitor : Delmer Dewey RT Signature : Date : Time : [place] [id number] [place] [address]
[~2017-07-02 10:49] MED LIST: ALDACTONE25 MG PO; BAYER CHEWABLE81 MG PO; LISINOPRIL10 MG PO; NITROQUICK0.4 MG SL; PLAVIX75 MG PO
[2017-07-02 12:14] VITALS: BP 128/55; Ht 182.9 cm; Wt 84.1 kg
[2017-07-02 12:15] LABS: BASOPHILS 0.3 % (0-2); EOSINOPHILS 1.9 % (0-7); HEMATOCRIT 45.6 % (42.0-54.0); HEMOGLOBIN 15.8 g/dL (13.5-17.5); IMMATURE GRANULOCYTES 0.3 % (0-5); LYMPHOCYTES 27.8 % (15-50); MCH 30.4 pg (26.0-34.0); MCHC 34.6 g/dL (31.0-37.0); MCV 87.7 fL (80.0-100.0); MEAN PLATELET VOLUME 9.8 fL (7.4-10.4); MONOCYTES 6.5 % (2-11); NEUTROPHILS 63.2 % (40-80); PLATELET COUNT 235 10x3/uL (130-400); RDW 13.2 % (11.5-14.5); WBC 6.8 10x3/uL (4.8-10.8)
[2017-07-02 12:23] LABS: ANION GAP 13.1 mmol/L (8-16); CARBON DIOXIDE 26.1 mmol/L (21.0-32.0); CREATININE - SERUM 1.3 mg/dL (0.6-1.3); POTASSIUM - SERUM 4.2 mmol/L (3.5-5.1)
--- NOTE | 2017-07-02 16:00 | NUR ---
LEFT GROIN CDI, NO HEMATOMA OR BLEEDING AT SITE. SOFT TO TOUCH, AT SIDE- DENIES NEEDS
--- NOTE | 2017-07-02 16:30 | NUR ---
RESTING WITH EYES CLOSED, LEFT GROIN CDI, SOFT TO TOUCH, NO HEMATOMA OR BLEEDING NOTED, AT SIDE
--- NOTE | 2017-07-02 19:30 | NUR ---
LEFT GROIN CDI, IV D'C WITH CATH TIP INTACT, WRITTEN AND VERBAL D'C INSTRUCTIONS GIVEN TO PT AND -VERBAL UNDERSTANDING. 1945-UP TO REST ROOM -VOID, D'C HOME WITH
== END | disposition home or self-care (01) ==
LOC: D.CATH 10:49
PROVIDERS: Internal Medicine Interventional Cardiology
DX: I25.10 Atherosclerotic heart disease of native coronary artery without angina pectoris (principal); Z79.02 Long term (current) use of antithrombotics/antiplatelets; Z01.812 Encounter for preprocedural laboratory examination